=== PATIENT | female | born 1990 | race African-American/Black ===

== ENCOUNTER 2017-08-05 09:14 | Emergency (ER) | payer OTHER ==
[2017-08-05 09:25] VITALS: BMI 38.9
--- NOTE | 2017-08-05 09:42 | PDOC ---
History of Present Illness - General Chief Complaint: Vaginal Bleeding Stated Complaint: MENSTRAL CRAMPS, HEADACHE Time Seen by Provider: 08/05/17 09:27 - History of Present Illness Initial Comments: 08/05/17 10:17 The patient is a 26 year old female with a history of migraines and PCOS who presents for evaluation of abdominal cramping and vaginal bleeding. The patient reports and irregular menstrual cycle over the past 1 month and notes a 1 week history of heavy vaginal bleeding where she notes that she is going through pads and tampons every 2 hours. She also noted some associated severe lower abdominal cramping prompting her presentation to the ED for evaluation. She endorses some headache and lightheadedness, but otherwise denies fevers, chills, SOB, chest pain, nausea, vomiting, or changes with urination or bowel movements. Past History - Past Medical History Allergies/Adverse Reactions: Allergies Allergy/AdvReac Type Severity Reaction Status Date / Time No Known Allergies Allergy Verified 08/05/17 09:22 Home Medications: Ambulatory Orders NK [No Known Home Medication] 08/05/17 COPD: No Other medical history: migraines - Suicide/Smoking/Psychosocial Hx Smoking History: Never smoked Have you smoked in the past 12 months: No Information on smoking cessation initiated: No Hx Alcohol Use: No Drug/Substance Use Hx: No Substance Use Type: None Review of Systems - Review of Systems Comments:: 08/05/17 10:20 Constitutional: No fevers, chills, fatigue, malaise HEENT: No Rhinorrhea, nasal congestion, visual changes Cardiovascular: Lightheadedness. No chest pain, syncope, palpitations, Respiratory: No Cough, SOB, Hemoptysis, Gastrointestinal: Abdominal cramping. No Nausea, Vomiting, Constipation, Diarrhea, Melena Genitourinary: Vaginal bleeding. No Dysuria, Frequency, Urgency, Hesitancy, Hematuria, Flank pain Musculoskeletal: No Myalgia, arthralgia Skin: No rashes, itching, bruising, pallor Neurologic: Headache. No Dizziness, Numbness, Weakness, or Tingling Psychiatric: No Hallucinations. No SI or HI *Physical Exam - Vital Signs Last Vital Signs Temp Pulse Resp BP Pulse Ox 98.0 F 86 18 147/82 100 08/05/17 09:23 08/05/17 09:23 08/05/17 09:23 08/05/17 09:23 08/05/17 09:23 - Physical Exam Comments: 08/05/17 10:21 General Appearance: Nourished. No Apparent Distress HEENT: EOMI, UMANG. No Pharyngeal Erythema, Tonsillar Exudate, Tonsillar Erythema Neck: No Cervical Lymphadenopathy Respiratory/Chest: Lungs Clear, Normal Breath Sounds. No Crackles, Rales, Rhonchi, Wheezing Cardiovascular: Regular Rhythm, Regular Rate. No Murmur, Gallops, Rubs Gastrointestinal/Abdominal: Normal Bowel Sounds, Soft. Mild tenderness to palpation in the LLQ. No Guarding, Rebound, Pelvic Exam: Normal external exam. Blood noted in the vaginal vault with a closed cervical os. No CMT. No Adenexal masses or tenderness. Musculoskeletal: No CVA Tenderness Extremity: Normal Capillary Refill Integumentary: Normal Color, Dry, Warm Neurologic: Fully Oriented, Alert, Normal Mood/Affect, Normal Response, ED Treatment Course - LABORATORY CBC & Chemistry Diagram: 08/05/17 10:12 08/05/17 10:12 Medical Decision Making - Medical Decision Making 08/05/17 10:59 The patient is a 26 year old female with a history of migraines and PCOS who presents for evaluation of abdominal cramping and vaginal bleeding. Differential includes but is not limited to: Ovarian cyst, , dysfunctional bleeding, metabolic derangement. Given the patient's history and physical exam, we will obtain a cbc, cmp, ua, urine preg, and transvaginal US to evaluate for possible etiologies. We will treat with tylenol and continue to monitor and reassess. 08/05/17 12:18 CBC,cmp, ua, urine preg are unremarkable. Transvaginal US does not demonstrate any acute pathology as read by our radiologist. The patient appears clinically well on exam. We are comfortable discharging the patient home at this time with close plant accountant follow up. We discussed return precautions with the patient including worsening pain or fevers. The patient voiced understanding and is agreeable with the plan. *DC/Admit/Observation/Transfer Diagnosis at time of Disposition: Vaginal bleeding - Discharge Dispostion Disposition: HOME Condition at time of disposition: Good Admit: No - Referrals Referrals: Fernando De La Rosa MD [Staff Physician] - - Patient Instructions Printed Discharge Instructions: DI for Vaginal Bleeding Additional Instructions: Please return to the ER if you experience concerning or worsening symptoms including worsening abdominal pain, lightheadedness, difficulty breathing, or fevers. Your lab results and ultrasound were normal here in the ER. It is extremely important that you call to schedule a follow up appointment with the plant accountant we have suggested (Dr. De La Rosa) within 2-3 days to further discuss management of your symptoms. - Post Discharge Activity
--- NOTE | 2017-08-05 09:44 | PDOC ---
Attending Attestation - Resident Resident Name: Gareth Weldon - ED Attending Attestation I have performed the following: I have examined & evaluated the patient, The case was reviewed & discussed with the resident, I agree w/resident's findings & plan, Exceptions are as noted - HPI HPI: 08/05/17 09:42 26y F hx of PCOS presents with vaginal bleeding x 1 month, was having heavy bleeding last week, soaking pads every few hrs. She had seen her PMD and was planned for US but she has not yet had it yet. Pt hasnt yet followed up with boarding house cook due to insurance issues which has been resolved. Associated with L and suprapubic lower abdominal cramping, Pt endorses mild headache and lightheadedness. Pt dnies any cp, sob, palpitations, n/v, fever/chills, vag discharge, dysuria/hematuria. On exam pts vitals stable noted mild hypertension cardiac: rrr, no m/r/g pulm: cta abd: mild suprapubic tenderness ddx menorrhgia secondary to pcos, fibroids will r/o will obtain blood work, us - Physicial Exam PE: 08/06/17 20:14 see above - Medical Decision Making 08/05/17 12:01 labs reviewed no anemia noted US reviewed - no blood flow irregular thickening of endometrial stripe, unable to find flow on R ovary, however without any pain on the R side, do not think that torsion is likely. pt currently in no pain. will dc the pt with pm dfu return precautions were discussed, including recurrent pain and discussed signs/ symptoms of ovarian torsion, will have pt reutrn for increased bleeding or signs of anemia will give pt [employer] [facility]
[2017-08-05] MEDS ORDERED: ACETAMINOPHEN 325 MG TABLET (FP) PO ONE (10:16)
[2017-08-05 10:28] LABS: HCG,QUALITATIVE URINE NEGATIVE
[2017-08-05 10:29] LABS: URINE APPEARANCE CLOUDY; URINE BILIRUBIN NEGATIVE (NEGATIVE); URINE BLOOD 3+ (NEGATIVE); URINE COLOR LTYELLOW; URINE GLUCOSE (UA) NEGATIVE (NEGATIVE); URINE KETONE NEGATIVE (NEGATIVE); URINE LEUK ESTERASE TRACE (NEGATIVE); URINE NITRITE NEGATIVE (NEGATIVE); URINE UROBILINOGEN NEGATIVE mg/dL (0.2-1.0)
[2017-08-05 10:30] LABS: URINE PROTEIN 1+ (NEGATIVE)
[2017-08-05] MEDS ORDERED: ACETAMINOPHEN 325 MG TABLET (FP) ONE (10:33)
[2017-08-05 10:35] LABS: EPI CELLS RARE /HPF (FEW); URINE MUCUS RARE
[2017-08-05 10:37] LABS: BASO % 0.9 % (0-2.0); EOS % 1.3 % (0-4.5); HEMATOCRIT 36.6 % (32.4-45.2); HEMOGLOBIN 12.4 GM/dL (10.7-15.3); LYMPH % 29.3 % (8-40); MCH 30.7 pg (25.7-33.7); MCHC 33.9 g/dl (32.0-36.0); MEAN CELL VOLUME 90.5 fl (80-96); MEAN PLT VOLUME 8.5 fl (7.5-11.1); MONO % 5.1 % (3.8-10.2); NEUT % 63.4 % (42.8-82.8); PLATELET COUNT 270 K/MM3 (134-434); RBC 4.05 M/mm3 (3.60-5.2); WHITE BLOOD COUNT 9.4 K/mm3 (4.0-10.0)
[2017-08-05 10:51] LABS: ALBUMIN 3.3 g/dl (3.4-5.0); ANION GAP 14 (8-16); BLOOD UREA NITROGEN 16 mg/dL (7-18); CALCIUM 8.6 mg/dL (8.5-10.1); CHLORIDE 109 mmol/L (98-107); CO2 20 mmol/L (21-32); CREATININE 0.7 mg/dL (0.55-1.02); GLUCOSE,RANDOM 88 mg/dL (74-106); POTASSIUM 4.3 mmol/L (3.5-5.1); SGOT/AST 11 U/L (15-37); SGPT/ALT 17 U/L (12-78); SODIUM 143 mmol/L (136-145)
[2017-08-05 10:52] LABS: ALK PHOS 103 U/L (45-117); BILIRUBIN,TOTAL 0.3 mg/dL (0.2-1.0); TOT PROT 7.2 g/dl (6.4-8.2)
[2017-08-05 12:38] VITALS: BP 125/67; PULSE 76; TEMP 98.3
== END 2017-08-05 12:39 | disposition home or self-care (01) ==
LOC: JER 09:14
DX: N93.9 Abnormal uterine and vaginal bleeding, unspecified (principal)
CPT/HCPCS: 36415; 76830-TC; 80053; 81003; 81015; 84703; 85025; 86850; 86900; 86901; 99283-25